=== PATIENT | female | born 1980 | race Caucasian/White ===

== ENCOUNTER 2016-12-31 15:09 | Emergency (ER) | payer SELFPAY ==
[~2016-12-31] VITALS: Ht 149.9 cm; Wt 66.7 kg
[2016-12-31 15:32] VITALS: BP 116/84
== END 2016-12-31 17:07 | disposition home or self-care (01) ==
LOC: ED 15:09
DX: T63.481A Toxic effect of venom of other arthropod, accidental (unintentional), initial encounter (principal); T78.40XA Allergy, unspecified, initial encounter; Z88.1 Allergy status to other antibiotic agents; Z79.899 Other long term (current) drug therapy; Y92.89 Other specified places as the place of occurrence of the external cause

== ENCOUNTER 2017-06-17 18:53 | Emergency (ER) | payer SELFPAY ==
[~2017-06-17] VITALS: Ht 149.9 cm; Wt 64.0 kg
[2017-06-17 20:51] LABS: BASOPHIL % 0.6 % (0-2); PLATELET COUNT 238 x10^3mcL (130-400)
[2017-06-17 20:56] LABS: CALCIUM 9.3 mg/dL (8.5-10.1); CARBON DIOXIDE 28.3 mmol/L (21-32); CHLORIDE SERUM 104 mmol/L (98-107); CREATININE SERUM 0.8 mg/dL (0.6-1.0); GFR1 > 60 mL/min; GLUCOSE SERUM 88 mg/dL (74-106); POTASSIUM SERUM 4.1 mmol/L (3.5-5.1); SODIUM SERUM 140 mmol/L (136-145)
[2017-06-17 21:01] LABS: ALBUMIN 3.8 g/dL (3.4-5.0); ALKALINE PHOSPHATASE 80 U/L (46-116); ALT/SGPT 32 U/L (14-59); AMYLASE 95 U/L (25-115); AST/SGOT 20 U/L (15-37); BILIRUBIN TOTAL 0.2 mg/dL (0.20-1.00); LIPASE 227 IU/L (73-393); TOTAL PROTEIN, SERUM 8.1 g/dL (6.4-8.2)
[2017-06-17 22:27] VITALS: BP 104/74
== END 2017-06-17 22:27 | disposition home or self-care (01) ==
LOC: ED 18:53
PROVIDERS: Emergency Medicine
DX: R10.9 Unspecified abdominal pain (principal); Z88.1 Allergy status to other antibiotic agents
CPT/HCPCS: 36415; 83880

== ENCOUNTER 2017-12-09 19:47 | Emergency (ER) | payer SELFPAY ==
[~2017-12-09] VITALS: Ht 149.9 cm; Wt 64.0 kg
[2017-12-09 19:58] VITALS: Ht 149.9 cm; Wt 64.0 kg
[2017-12-09 22:10] LABS: BASOPHIL % 0.3 % (0-2); PLATELET COUNT 247 x10^3mcL (130-400); RED CELL DISTRIBUTION WIDTH 12.8 % (11.5-14.5)
[2017-12-09 22:53] LABS: CALCIUM 8.9 mg/dL (8.5-10.1); CHLORIDE SERUM 105 mmol/L (98-107); CREATININE SERUM 0.7 mg/dL (0.6-1.0); GFR1 > 60 mL/min; GLUCOSE SERUM 98 mg/dL (74-106); POTASSIUM SERUM 3.4 mmol/L (3.5-5.1); SODIUM SERUM 137 mmol/L (136-145)
[2017-12-09 22:55] LABS: ALBUMIN 3.4 g/dL (3.4-5.0); ALKALINE PHOSPHATASE 74 U/L (46-116); ALT/SGPT 32 U/L (14-59); AST/SGOT 24 U/L (15-37); LIPASE 162 IU/L (73-393); TOTAL PROTEIN, SERUM 7.1 g/dL (6.4-8.2)
[2017-12-10 00:17] VITALS: BP 103/61
== END 2017-12-10 00:17 | disposition home or self-care (01) ==
LOC: ED 19:47
PROVIDERS: Emergency Medicine
DX: O23.41 Unspecified infection of urinary tract in pregnancy, first trimester (principal); Z3A.00 Weeks of gestation of pregnancy not specified; Z88.1 Allergy status to other antibiotic agents
CPT/HCPCS: 36415; 87491; 87591

== ENCOUNTER 2018-02-15 01:00 | Emergency (ER) | payer MEDICAID ==
[~2018-02-15] VITALS: Ht 149.9 cm; Wt 62.1 kg
[2018-02-15 02:13] LABS: BASOPHIL % 0.3 % (0-2); PLATELET COUNT 275 x10^3mcL (130-400); RED CELL DISTRIBUTION WIDTH 12.6 % (11.5-14.5)
[2018-02-15 02:31] LABS: CALCIUM 8.1 mg/dL (8.5-10.1); CARBON DIOXIDE 20.9 mmol/L (21-32); CHLORIDE SERUM 103 mmol/L (98-107); CREATININE SERUM 0.8 mg/dL (0.6-1.0); GFR1 > 60 mL/min; GLUCOSE SERUM 134 mg/dL (74-106); SODIUM SERUM 139 mmol/L (136-145)
[2018-02-15 03:50] VITALS: BP 122/79
== END 2018-02-15 03:30 | disposition home or self-care (01) ==
LOC: ED 01:00
PROVIDERS: Emergency Medicine
DX: R07.89 Other chest pain (principal); Z88.1 Allergy status to other antibiotic agents
CPT/HCPCS: 36415; J1885

== ENCOUNTER 2018-04-27 15:33 | Emergency (ER) | payer SELFPAY ==
[~2018-04-27] VITALS: Ht 149.9 cm; Wt 63.6 kg
[2018-04-27 16:06] VITALS: Ht 149.9 cm; Wt 63.6 kg
[2018-04-27 16:31] VITALS: BP 114/56
== END 2018-04-27 16:31 | disposition home or self-care (01) ==
LOC: ED 15:33
DX: R21 Rash and other nonspecific skin eruption (principal); Z88.1 Allergy status to other antibiotic agents

== ENCOUNTER 2018-10-21 19:51 | Emergency (ER) | payer SELFPAY ==
[~2018-10-21] VITALS: Ht 149.9 cm; Wt 66.7 kg
[2018-10-21 20:36] VITALS: Ht 149.9 cm; Wt 66.7 kg
[2018-10-21 22:39] VITALS: BP 121/70
== END 2018-10-21 22:39 | disposition home or self-care (01) ==
LOC: ED 19:51
DX: S39.012A Strain of muscle, fascia and tendon of lower back, initial encounter (principal); Z98.890 Other specified postprocedural states; Z88.1 Allergy status to other antibiotic agents; Z98.84 Bariatric surgery status; W18.30XA Fall on same level, unspecified, initial encounter; Y93.89 Activity, other specified; Y92.89 Other specified places as the place of occurrence of the external cause; Y99.8 Other external cause status
CPT/HCPCS: J1885